=== PATIENT | female | born 1990 | race Caucasian/White ===

== ENCOUNTER 2023-07-06 08:53 | Outpatient (CLI) | payer OTHER, MEDICAID, SELFPAY ==
[2023-07-11 04:21] LABS: Prolactin 11.7 ng/mL (***)
== END 2023-07-06 08:54 | disposition home or self-care (01) ==
PROVIDERS: PCP Obstetrics & Gynecology; Visit Provider Obstetrics & Gynecology
DX: N64.52 Nipple discharge (principal)
CPT/HCPCS: 36415; 84146

== ENCOUNTER 2023-07-30 12:08 | Outpatient (CLI) | payer OTHER, MEDICAID, SELFPAY ==
--- NOTE | ~2023-07-30 | MMUS_ITS ---
EXAMINATION: MM diagnostic yen BI w [place], US breast BI complete HISTORY: Right nipple discharge TECHNIQUE: ML, MLO and CC 3-D tomosynthesis images of both breasts were performed and synthetic 2-D images were generated. Bilateral rotated lateral CC views. CAD analysis was submitted and interpreted . High resolution complete bilateral breast ultrasound examination including all 4 quadrants and suba reolar areas was performed. COMPARISON: None BREAST PARENCHYMAL COMPOSITION: The breasts are heterogeneously dense, which may obscure small masses . FINDINGS: MAMMOGRAPHIC FINDINGS: No suspicious mass or architectural distortion, malignant calcification, skin thickening or retractio n is detected. ULTRASOUND: Right breast: 10:00 6 cm from nipple: Parallel circumscribed hypoechoic 4.3 x 9.6 x 10.6 mm solid lesion with centr al fatty hilum, without internal vascularity or posterior shadowing, likely a benign intramammary lym ph node. No suspicious mass or shadowing of the right breast is detected. Left breast: No suspicious mass or shadowing or other significant sonographic abnormality is noted in the left breast. IMPRESSION: 1. No mammographic or sonographic evidence of malignancy 2. Routine annual mammographic screening is recommended BI-RADS Category 2: Benign finding(s). Reviewed, dictated and finalized at location A. IMPRESSION: 1. No mammographic or sonographic evidence of malignancy 2. Routine annual mammographic screening is recommended BI-RADS Category 2: Benign finding(s).
== END 2023-07-30 12:09 | disposition home or self-care (01) ==
LOC: ANHIMG 12:10
PROVIDERS: PCP Obstetrics & Gynecology; Visit Provider Obstetrics & Gynecology
DX: Z12.31 Encounter for screening mammogram for malignant neoplasm of breast (principal); N64.52 Nipple discharge
CPT/HCPCS: 76641; 77062; 77066; G0279

== ENCOUNTER 2023-09-03 12:55 | Outpatient (CLI) | payer OTHER, MEDICAID, SELFPAY ==
--- NOTE | ~2023-09-03 | MR_ITS ---
EXAMINATION: MR breast BI wo/w con INDICATION: Bilateral nipple discharge TECHNIQUE: Axial VIBRANT pre and dynamic post contrast, Sagittal VIBRANT post contrast, Axial T2 STIR ASSET COMPARISON: None CONTRAST: Multihance, 17 cc BREAST COMPOSITION: Heterogeneous fibroglandular tissue FINDINGS: RIGHT BREAST: There is moderate background parenchymal enhancement. There is T1 hyperintense, and pos sibly T2 hyperintense intraductal material in the lower outer quadrant of the breast extending to the nipple. No abnormal enhancement is present after contrast administration. No pathologically enlarged axillary or internal mammary lymph nodes are identified. LEFT BREAST: There is moderate background parenchymal enhancement. No abnormal enhancement is present after contrast administration. No pathologically enlarged axillary or internal mammary lymph nodes a re identified. IMPRESSION: 1. Probable intraductal proteinaceous material in the lower-outer quadrant of the right breast of unc lear etiology. BI-RADS Category 2: Benign finding(s). Reviewed, dictated and finalized at location A. IMPRESSION: 1. Probable intraductal proteinaceous material in the lower-outer quadrant of t he right breast of unclear etiology. BI-RADS Category 2: Benign finding(s).
== END 2023-09-03 12:56 | disposition home or self-care (01) ==
PROVIDERS: PCP Obstetrics & Gynecology; Visit Provider Physician Assistant Surgical
DX: N64.52 Nipple discharge (principal)
CPT/HCPCS: 77049; A9577; C8908

== ENCOUNTER 2023-10-23 06:31 | Day surgery (SDC) | payer OTHER, MEDICAID, SELFPAY ==
[2023-10-16 12:46] VITALS: BMI 29.2
[2023-10-23] VITALS (9 sets, daily range): BP systolic 104–146; BP diastolic 61–94; PULSE 69–88; RESP 12–22; TEMP 36.4–36.9; O2SAT 96–100
--- NOTE | 2023-10-23 07:13 | P.PNAN_ITS ---
Anes - Initial Pre Proc Eval Procedure: Operation Date: 10/23/23 08:30 Proposed Procedures p Right Nipple Duct Exploration and Excision with Methylene Blue - Rita Reinoso MD Date/Time: 10/23/23 07:13 Surgeon: Rita Reinoso MD Pre Op Diagnosis: Right Nipple Discharge Patient Data Age: 32 Gender: F Height: 1.68 m Weight: 82 kg Allergies Allergy/AdvReac Type Severity Reaction Status Date / Time amoxicillin Allergy Mild Rash Verified 10/23/23 07:24 Penicillins Allergy Mild Rash Verified 10/23/23 07:24 Home Medications Medication Instructions Recorded Confirmed Type duloxetine 60 mg capsule,delayed 90 mg PO DAILY 07/05/23 10/23/23 History release Patient hx anesthesia problems: none Family hx anesthesia problems: none Results Review: All pre-operative results and documents have been reviewed as part of the pre- operative evaluation. [facility] Past Medical History Medical History Anxiety Chronic post-traumatic stress disorder (PTSD) History of History of spontaneous Surgical History Surgical History [place] teeth removed Family History Family History (Updated 08/13/23 @ 09:16 by Janeen Lovett CMA) Grandparent Family history of malignant neoplasm Father No problems noted. Mother No problems noted. Social History Social History (Updated 08/13/23 @ 09:03 by Janeen Lovett CMA) Smoking status: Never smoker Second hand tobacco smoke exposure: No Alcohol intake: current Alcohol use details: rarely Substance use: never Substance use type: does not use Lack of Transportation: No Lack of Food: Never True Current Housing: I Have Housing Concerned About Future Housing: No Difficulty Paying Gas/Electric Bills: No Difficulty Paying for Meds: No Currently Unemployed: No Education: Bachelor's Degree Difficulty w/ Childcare or Family Care: No Living arrangements: alone Occupation/Education: occupation Gender identity (if verbalized by the patient): Female Sexual Orientation (if Verbalized by the Patient): Straight or Heterosexual Spiritual care concerns: No Anes - Eval Final PreProcedure Day of Procedure 10/23/23 07:13 Patient weight: overweight Heart: regular rate and rhythm Lungs: clear to auscultation Airway: Mallampati scale class II Neurological: alert and oriented Last oral intake: >/= 8 hours ASA classification: II Emergent: no Anesthetic plan: proceed Anesthesia type and monitoring: general LMA and standard monitoring Results Review: All pre-operative results and documents have been reviewed as part of the pre- operative evaluation. Informed Consent: The patient's anesthetic plan and its attendant risks and benefits were discussed with the patient/family/POA. Questions were solicited and answers provided to the satisfaction of the patient/family/POA.
[2023-10-23] MEDS: LACTATED RINGERS 1,000 ML 30 ML IV CONT (07:30)
[2023-10-23] MEDS: SCOPOLAMINE 1 MG PATCH 1 PATCH TRANSDERM (08:02)
--- NOTE | 2023-10-23 08:33 | WPDHPUPDATE1 ---
History and Physical Update Update Date/Time: 10/23/23 08:33 History and Physical has been reviewed, including an updated exam of the patient. There are NO changes in the patient's condition. Risks, benefits, and alternatives have been discussed and questions answered. Patient agrees to proceed with procedure.
[2023-10-23] MEDS: ceFAZolin SODIUM 2 GM/20 ML SW SYRINGE IV PUSH (08:46)
[2023-10-23] MEDS: METHYLENE BLUE 0.5% INJ 10 ML AMPULE 5 ML IRRIGATION (09:00)
[2023-10-23] MEDS: BUPIVACAINE/EPINEPHRINE 0.25% 10 ML VIAL INFILTRATE (09:04)
[2023-10-23] MEDS: LIDOCAINE HCL 1% LOCAL INJ 10 ML VIAL INFILTRATE (09:07)
--- NOTE | 2023-10-23 09:55 | W.PM.PROC2 ---
Procedure Note - Detailed Date of Procedure 10/23/23 Pre-op Diagnosis Pathological Right Nipple Discharge Post-op Diagnosis Same Procedure Performed right nipple exploration and excisional biopsy of right mammary duct (specimen oriented with stitch and ink, 4.25cm in length for duct specimen) Surgeon Rita Reinoso MD Anesthesia General Description of Procedure Patient was identified in the preoperative holding area brought to the operating room suite. She was laid supine in the operating table sequential compression devices were applied. General anesthesia was induced without difficulty. The right chest area was prepped and draped in a sterile fashion. A right lateral periareolar incision was made and dissection was carried down through the subcutaneous tissue and ports the center of the nipple. A small lacrimal probe was inserted through to the duct noted to have pathological nipple discharge on exam and I was able to identify the duct under the nipple. The duct was circumferentially dissected and excised down to a length of 4.25 cm. The duct was then sent to pathology as a permanent specimen and marked stitch distal margin and ink margin was closest to the nipple. The cavity was irrigated with saline hemostasis was assured. Next, 3-0 Vicryl interrupted sutures were used to approximate the intramammary tissue to prevent nipple retraction centrally, Followed by 3-0 interrupted Vicryl for the deep dermal and 4 0 Monocryl for the skin in a subcuticular fashion. Steri-Strips were applied followed by a sterile dressing and a surgical bra. Patient was awoken from anesthesia and taken to the recovery area in stable condition. All needles, instruments, sponge counts were correct as reported by the operating room staff. Patient tolerated the procedure well with no immediate complications. Drains No Packing No Pathology Yes Complications No immediate complications Condition Stable Disposition PACU [facility] Billing Surgery - Charge Forward: Surgery Billing (CPT 07441)
--- NOTE | 2023-10-23 10:49 | WPDANESPN ---
Anes - Prog Note Post-Op Date/Time: 10/23/23 10:49 Cardiovascular status: normal Respiratory status: normal Airway patency: baseline Mental status: baseline Post-Op hydration status: normal Vital Signs: Last Vital Signs Temp 36.4 C L 10/23/23 10:07 Pulse 78 10/23/23 10:37 Resp 16 10/23/23 10:37 BP 111/70 10/23/23 10:37 Pulse Ox 97 10/23/23 10:37 O2 Del Method Room Air 10/23/23 10:37 O2 Flow Rate 8 10/23/23 10:07 Pain Score (VAS): 1 I/O: Intake & Output 10/22/23 10/23/23 10/23/23 23:59 07:59 15:59 Intake Total 920 Balance 920 Post-procedural complaints: none Patient Feedback: Patient satisfied with anesthetic care. Other Findings: Patient vital signs back to baseline. Patient denies nausea and vomiting. Patient's pain under control. Patient OK for discharge.
== END 2023-10-23 11:20 | disposition home or self-care (01) ==
PROVIDERS: Visit Provider Surgery
PROC: (CPT 19110; principal; 2023-10-23 08:30)
DX: N64.52 Nipple discharge (principal)
CPT/HCPCS: 19110

== ENCOUNTER 2023-10-23 07:48 | Outpatient (NON) | payer OTHER, MEDICAID, SELFPAY | END 2023-10-23 07:49 | disposition home or self-care (01) | PROVIDERS: Visit Provider Surgery | DX: N64.52 Nipple discharge (principal) | CPT/HCPCS: 88305 ==